=== PATIENT | male | born 1985 | race Caucasian/White ===

== ENCOUNTER 2018-04-21 11:59 | Inpatient (IN) | payer OTHER ==
[2018-04-21] MEDS ORDERED: hydrOXYzine PAMOATE 50 MG CAPSULE (FP) PO PRN (14:31)
[2018-04-21] MEDS ORDERED: MAG HYDROX/AL HYDROX/SIMETH 30 ML UNIT-DOSE CUP PO PRN (14:31)
[2018-04-21] MEDS ORDERED: MENTHOL/PHENOL 1 EACH UD MM PRN (14:31)
[2018-04-21] MEDS ORDERED: IBUPROFEN 400 MG TABLET (FP) PO PRN (14:31)
[2018-04-21] MEDS ORDERED: ACETAMINOPHEN 325 MG TABLET (FP) PO PRN (14:31)
[2018-04-21] MEDS ORDERED: guaiFENesin/D-METHORPHAN HB 10 ML UNIT-DOSE CUPS PO PRN (14:31)
[2018-04-21] MEDS ORDERED: MAGNESIUM HYDROX 2400MG/30ML ORAL SUSPENSION 30 ML CUP PO PRN (14:31)
[2018-04-21] MEDS ORDERED: P-EPHED 60MG/TRIPROLIDI 2.5MG TABLET PO PRN (14:31)
[2018-04-21] MEDS ORDERED: MAGNESIUM CITRATE 300 ML BOTTLE PO PRN (14:31)
[2018-04-21] MEDS ORDERED: LOPERAMIDE HCL 2 MG CAPSULE PO PRN (14:31)
--- NOTE | 2018-04-21 14:31 | HP ---
[facility]AN [facility]IN Rehab Assess/Revision - Admission History Admitted to Rehab from: [facility] Date of Admission to Rehab: 04/21/18 - Findings Detox History & Physical reviewed: Yes Concur with findings: Yes Comments/Additional Findings: for rehab as protocol Inpatient Rehab Admission - Initial Determination Are CD services needed?: Yes Free of communicable disease: Yes Not in need of hospitalization: Yes - Rehab Admission Criteria Previous failed treatment: Yes Poor recovery environment: Yes Comorbidities: Yes Lacks judgement: No Patient is meeting Inpatient Rehab admission criteria:: Yes
--- NOTE | 2018-04-21 17:14 | PN ---
[facility] Progress Note Note: Received a call from pharmacist regarding whether patient had been on Eliquis. Met with patient and patient denied ever being on Eliquis or any blood thinner. Patient denies history of blood clots, irregular heart beat, heart surgery or any history of clots in legs or lungs. Patient is alert and oriented. EKG on 08/24 shows no atrial fibrillation. Vital Signs Period Temp Pulse Resp BP Sys/Tobin Pulse Ox Last 24 Hr 97.5 F 68 19 113/74
[2018-04-21] MEDS: AMOX TR/POT CLAV 875MG/125MG TABLETS (FP) PO SCH (17:44)
[2018-04-21] MEDS: THIAMINE HCL 100 MG TABLET (FP) PO SCH (21:45)
[2018-04-21] MEDS ORDERED: MELATONIN 5 MG TABLETS PO PRN (22:00)
[2018-04-22] MEDS ORDERED: METHADONE HCL 10 MG TABLET ONE (04:17)
[2018-04-22] MEDS ORDERED: METHADONE HCL 40 MG DISPERSABLE TABLET ONE (04:17)
[2018-04-22] MEDS ORDERED: METHADONE HCL 10 MG TABLET PO SCH (06:00)
[2018-04-22] MEDS: METHADONE 80 MG, METHADONE 20 MG PO SCH (06:12)
[2018-04-22] MEDS: AMOX TR/POT CLAV 875MG/125MG TABLETS (FP) PO SCH ×2 (07:03→16:45)
[2018-04-22] MEDS: PRENATAL VITAMINS W/ FOLIC ACID TABLET (FP) PO SCH (09:49)
--- NOTE | 2018-04-22 14:57 | HP ---
Psychiatrist Admission - Data Date of interview: 04/22/18 Admission source: Transfer from [address] [place] [address] Identifying data: Readmission to [facility] for this 33 y/o male seeking rehabilitation treatment at [address] for opioid,cannabis (K2) ,cocaine and xanax dependence.Completed detox on [address] [place] [address].Patient is single without dependents,homeless,unemployed and supported on food stamps. Medical History: Hepatitis C and a history of appendectomy. Psychiatric History: History of past psychiatric hospitalizations at [facility].Diagnosed with MDD and Bipolar Disorder as per self- report.Discharged from [facility] six months ago.Patient declares that he has been lost to follow up for several months.Used to be prescribed seroquel and zoloft.Mr Ermias denies history of suicide attempts. Physical/Sexual Abuse/Trauma History: Patient denies. Additional Comment: Discussed in this examination.See details in this [facility] report : Smoking history: Current every day smoker. Have you smoked in the past 12 months: Yes. Aproximately how many cigarettes per day: 20. Cigars Per Day: 0. Hx Chewing Tobacco Use: No. Initiated information on smoking cessation : Yes. 'Breaking Loose' booklet given: 04/16/18. - Substance & Tx. History. Hx Alcohol Use: Yes. Hx Substance Use: Yes. Substance Use Type: Alcohol, Cocaine, Marijuana. Hx Substance Use Treatment: Yes ([facility]). - Substances Abused. Alprazolam (Xanax). Route: Oral. Frequency: Daily. Amount used: 6 /1MG. Age of first use: 11. Date of Last Use: 04/16/18. Cocaine. Route: Smoking. Frequency: Daily. Amount used: 10 BAGS. Age of first use: 12. Date of Last Use: 04/16/18. K2. Route: Smoking. Frequency: Daily. Amount used : 1 PACK. Age of first use: 32. Date of Last Use: 04/16/18. Urine Drug Screen Results: THC-Marijuana, TONIE-Cocaine, OPI-Opiates, BZO-Benzodiazepines, MTD-Methadone, TCA-Tricyclic Antidepress, OXY-Oxycodone.Noted. Vital Signs: Vital Signs - 24 hr 04/21/18 04/22/18 04/22/18 15:52 00:30 03:30 Temperature 97.5 F L Pulse Rate 68 Respiratory 19 18 18 Rate Blood Pressure 113/74 04/22/18 06:44 Temperature 97.5 F L Pulse Rate 91 H Respiratory 16 Rate Blood Pressure 119/69 Allergies/Adverse Reactions: Allergies Allergy/AdvReac Type Severity Reaction Status Date / Time haloperidol [From Haldol] Allergy Severe Verified 04/21/18 13:58 haloperidol lactate Allergy Severe Verified 04/21/18 13:58 [From Haldol] - Substance Abuse/Tx History Hx Alcohol Use: No Hx Substance Use: Yes Substance Use Type: Cocaine, Heroin, Marijuana, Opiates, Tranquilizers Hx Substance Use Treatment: Yes (on methadone maintenance-100 mg/day-at [facility] in [facility]) Mental Status Exam - Mental Status Exam Alert and Oriented to: Time, Place, Person Cognitive Function: Good Patient Appearance: Well Groomed Mood: Anxious, Hopeful Affect: Appropriate, Normal Range Patient Behavior: Appropriate, Cooperative Speech Pattern: Clear, Appropriate Voice Loudness: Normal Thought Process: Intact, Goal Oriented Thought Disorder: Not Present Hallucinations: Denies Suicidal Ideation: Denies Homicidal Ideation: Denies Insight/Judgement: Fair Sleep: Poorly, Difficulty falling asleep Appetite: Good Muscle strength/Tone: Normal Gait/Station: Normal Psychiatric Findings - Problem List ([place] 1, 2,3) (1) Alcohol dependence Current Visit: Yes Status: Acute (2) Opioid dependence on agonist therapy Current Visit: Yes Status: Acute (3) Sedative, hypnotic or anxiolytic dependence with withdrawal, uncomplicated Current Visit: Yes Status: Acute (4) Cocaine dependence Current Visit: Yes Status: Acute Comment: Crack (5) Cannabis dependence Current Visit: Yes Status: Acute (6) Nicotine dependence Current Visit: Yes Status: Acute Qualifiers: Nicotine product type: cigarettes Substance use status: in withdrawal Qualified Code(s): F17.213 - Nicotine dependence, cigarettes, with withdrawal (7) Drug-induced mood disorder Current Visit: Yes Status: Chronic (8) Bipolar disorder Current Visit: Yes Status: Chronic (9) Depressive disorder Current Visit: Yes Status: Suspected Comment: Self-report. (10) Insomnia Current Visit: Yes Status: Acute - Initial Treatment Plan Initial Treatment Plan: Psychoeducation.Sleep hygiene.Individual + group + supportive therapy sessions.Recreational therapy.Patient wishes to resume zoloft.Will re-start with 50 mg po daily.Insomnia is addressed with belsomra 5 mg po hs prn (patient declines seroquel due past side effects).Informed consent (verbal) given by the patient.Observation.
[2018-04-22] MEDS: THIAMINE HCL 100 MG TABLET (FP) PO SCH (21:05)
[2018-04-22] MEDS: SUVOREXANT 5 MG TABLET PO PRN (21:06)
[2018-04-23] MEDS ORDERED: METHADONE HCL 10 MG TABLET ONE (04:28)
[2018-04-23] MEDS ORDERED: METHADONE HCL 40 MG DISPERSABLE TABLET ONE (04:28)
[2018-04-23] MEDS: METHADONE 80 MG, METHADONE 20 MG PO SCH (06:06)
[2018-04-23] MEDS: AMOX TR/POT CLAV 875MG/125MG TABLETS (FP) PO SCH ×2 (07:05→17:35)
[2018-04-23] MEDS: PRENATAL VITAMINS W/ FOLIC ACID TABLET (FP) PO SCH (09:49)
[2018-04-23] MEDS: SERTRALINE HCL 50 MG TABLET (FP) PO SCH (09:49)
[2018-04-23] MEDS: THIAMINE HCL 100 MG TABLET (FP) PO SCH (21:10)
[2018-04-23] MEDS: SUVOREXANT 5 MG TABLET PO PRN (21:10)
[2018-04-24] MEDS ORDERED: METHADONE HCL 10 MG TABLET ONE (03:16)
[2018-04-24] MEDS ORDERED: METHADONE HCL 40 MG DISPERSABLE TABLET ONE (03:17)
[2018-04-24] MEDS: METHADONE 80 MG, METHADONE 20 MG PO SCH (06:38)
[2018-04-24] MEDS: SERTRALINE HCL 50 MG TABLET (FP) PO SCH (09:54)
[2018-04-24] MEDS: PRENATAL VITAMINS W/ FOLIC ACID TABLET (FP) PO SCH (09:54)
[2018-04-24] MEDS: SUVOREXANT 5 MG TABLET PO PRN (21:07)
[2018-04-24] MEDS: THIAMINE HCL 100 MG TABLET (FP) PO SCH (21:07)
[2018-04-25] MEDS ORDERED: METHADONE HCL 10 MG TABLET ONE (03:14)
[2018-04-25] MEDS ORDERED: METHADONE HCL 40 MG DISPERSABLE TABLET ONE (03:14)
[2018-04-25] MEDS: METHADONE 80 MG, METHADONE 20 MG PO SCH (06:17)
[2018-04-25] MEDS: PRENATAL VITAMINS W/ FOLIC ACID TABLET (FP) PO SCH (09:41)
[2018-04-25] MEDS: SERTRALINE HCL 50 MG TABLET (FP) PO SCH (09:41)
--- NOTE | 2018-04-25 10:10 | PN ---
[facility] Progress Note Note: Psychiatric nurse practitioner note: Belsomra 5mg renewed X7 days. Verbal consent given.
[2018-04-25] MEDS: THIAMINE HCL 100 MG TABLET (FP) PO SCH (21:07)
[2018-04-25] MEDS: SUVOREXANT 5 MG TABLET PO PRN (21:08)
[2018-04-26] MEDS ORDERED: METHADONE HCL 10 MG TABLET ONE (04:22)
[2018-04-26] MEDS ORDERED: METHADONE HCL 40 MG DISPERSABLE TABLET ONE (04:22)
[2018-04-26] MEDS: METHADONE 80 MG, METHADONE 20 MG PO SCH (06:23)
[2018-04-26] MEDS: PRENATAL VITAMINS W/ FOLIC ACID TABLET (FP) PO SCH (09:54)
[2018-04-26] MEDS: SERTRALINE HCL 50 MG TABLET (FP) PO SCH (09:54)
[2018-04-26] MEDS: THIAMINE HCL 100 MG TABLET (FP) PO SCH (21:01)
[2018-04-26] MEDS: SUVOREXANT 5 MG TABLET PO PRN (21:03)
[2018-04-27] MEDS ORDERED: METHADONE HCL 10 MG TABLET ONE (03:16)
[2018-04-27] MEDS ORDERED: METHADONE HCL 40 MG DISPERSABLE TABLET ONE (03:17)
[2018-04-27] MEDS: METHADONE 80 MG, METHADONE 20 MG PO SCH (06:14)
[2018-04-27] MEDS: PRENATAL VITAMINS W/ FOLIC ACID TABLET (FP) PO SCH (09:53)
[2018-04-27] MEDS: SERTRALINE HCL 50 MG TABLET (FP) PO SCH (09:53)
[2018-04-27] MEDS: THIAMINE HCL 100 MG TABLET (FP) PO SCH (21:05)
[2018-04-27] MEDS: SUVOREXANT 5 MG TABLET PO PRN (21:05)
[2018-04-28] MEDS ORDERED: METHADONE HCL 10 MG TABLET ONE (04:47)
[2018-04-28] MEDS ORDERED: METHADONE HCL 40 MG DISPERSABLE TABLET ONE (04:47)
[2018-04-28] MEDS: METHADONE 80 MG, METHADONE 20 MG PO SCH (06:19)
[2018-04-28] MEDS: SERTRALINE HCL 50 MG TABLET (FP) PO SCH (09:42)
[2018-04-28] MEDS: PRENATAL VITAMINS W/ FOLIC ACID TABLET (FP) PO SCH (09:42)
[2018-04-28] MEDS: THIAMINE HCL 100 MG TABLET (FP) PO SCH (21:01)
[2018-04-28] MEDS: SUVOREXANT 5 MG TABLET PO PRN (21:01)
[2018-04-29] MEDS ORDERED: METHADONE HCL 10 MG TABLET ONE (02:57)
[2018-04-29] MEDS ORDERED: METHADONE HCL 40 MG DISPERSABLE TABLET ONE (02:58)
[2018-04-29] MEDS: METHADONE 80 MG, METHADONE 20 MG PO SCH (06:34)
--- NOTE | 2018-04-29 08:46 | PN ---
[facility] Progress Note Note: Psychiatric nurse practitioner note: Belsomra 5mg renewed X7 days. Verbal consent given.
[2018-04-29] MEDS: PRENATAL VITAMINS W/ FOLIC ACID TABLET (FP) PO SCH (09:44)
[2018-04-29] MEDS: SERTRALINE HCL 50 MG TABLET (FP) PO SCH (09:44)
[2018-04-29] MEDS: THIAMINE HCL 100 MG TABLET (FP) PO SCH (21:05)
[2018-04-29] MEDS: SUVOREXANT 5 MG TABLET PO PRN (21:05)
[2018-04-30] MEDS ORDERED: METHADONE HCL 10 MG TABLET ONE (03:21)
[2018-04-30] MEDS ORDERED: METHADONE HCL 40 MG DISPERSABLE TABLET ONE (03:21)
[2018-04-30] MEDS: METHADONE 80 MG, METHADONE 20 MG PO SCH (06:47)
[2018-04-30] MEDS: PRENATAL VITAMINS W/ FOLIC ACID TABLET (FP) PO SCH (09:47)
[2018-04-30] MEDS: SERTRALINE HCL 50 MG TABLET (FP) PO SCH (09:47)
[2018-04-30] MEDS: SUVOREXANT 5 MG TABLET PO PRN (21:04)
[2018-04-30] MEDS: THIAMINE HCL 100 MG TABLET (FP) PO SCH (21:04)
[2018-05-01] MEDS ORDERED: METHADONE HCL 10 MG TABLET ONE (04:26)
[2018-05-01] MEDS ORDERED: METHADONE HCL 40 MG DISPERSABLE TABLET ONE (04:26)
[2018-05-01] MEDS: METHADONE 80 MG, METHADONE 20 MG PO SCH (06:42)
[2018-05-01] MEDS: SERTRALINE HCL 50 MG TABLET (FP) PO SCH (09:47)
[2018-05-01] MEDS: PRENATAL VITAMINS W/ FOLIC ACID TABLET (FP) PO SCH (09:47)
[2018-05-01] MEDS: THIAMINE HCL 100 MG TABLET (FP) PO SCH (21:03)
[2018-05-01] MEDS: SUVOREXANT 5 MG TABLET PO PRN (21:04)
[2018-05-02] MEDS ORDERED: METHADONE HCL 40 MG DISPERSABLE TABLET ONE (04:36)
[2018-05-02] MEDS ORDERED: METHADONE HCL 10 MG TABLET ONE (04:36)
[2018-05-02] MEDS: METHADONE 80 MG, METHADONE 20 MG PO SCH (06:01)
[2018-05-02] MEDS: PRENATAL VITAMINS W/ FOLIC ACID TABLET (FP) PO SCH (09:43)
[2018-05-02] MEDS: SERTRALINE HCL 50 MG TABLET (FP) PO SCH (09:44)
[2018-05-02] MEDS: THIAMINE HCL 100 MG TABLET (FP) PO SCH (21:11)
[2018-05-02] MEDS: SUVOREXANT 5 MG TABLET PO PRN (21:11)
[2018-05-03] MEDS ORDERED: METHADONE HCL 10 MG TABLET ONE (03:05)
[2018-05-03] MEDS ORDERED: METHADONE HCL 40 MG DISPERSABLE TABLET ONE (03:05)
[2018-05-03] MEDS: METHADONE 80 MG, METHADONE 20 MG PO SCH (06:20)
[2018-05-03] MEDS: SERTRALINE HCL 50 MG TABLET (FP) PO SCH (09:54)
[2018-05-03] MEDS: PRENATAL VITAMINS W/ FOLIC ACID TABLET (FP) PO SCH (09:54)
--- NOTE | 2018-05-03 15:58 | PN ---
S Progress Note Note: Psychiatry Attending's note : Called for medication renewal. Belsomra 5 mg po hs prn. Done.
[2018-05-03] MEDS: SUVOREXANT 5 MG TABLET PO PRN (21:07)
[2018-05-03] MEDS: THIAMINE HCL 100 MG TABLET (FP) PO SCH (21:08)
[2018-05-04] MEDS ORDERED: METHADONE HCL 40 MG DISPERSABLE TABLET ONE (03:18)
[2018-05-04] MEDS ORDERED: METHADONE HCL 10 MG TABLET ONE (03:18)
[2018-05-04] MEDS: METHADONE 80 MG, METHADONE 20 MG PO SCH (06:14)
[2018-05-04] MEDS: SERTRALINE HCL 50 MG TABLET (FP) PO SCH (09:51)
[2018-05-04] MEDS: PRENATAL VITAMINS W/ FOLIC ACID TABLET (FP) PO SCH (09:51)
[2018-05-04] MEDS: THIAMINE HCL 100 MG TABLET (FP) PO SCH (21:07)
[2018-05-04] MEDS: SUVOREXANT 5 MG TABLET PO PRN (21:07)
[2018-05-05] MEDS ORDERED: METHADONE HCL 10 MG TABLET ONE (05:49)
[2018-05-05] MEDS ORDERED: METHADONE HCL 40 MG DISPERSABLE TABLET ONE (05:50)
[2018-05-05] MEDS ORDERED: METHADONE 80 MG, METHADONE 20 MG PO SCH (06:00)
[2018-05-05 06:38] VITALS: BP 134/78; PULSE 58; TEMP 97.7
[2018-05-05] MEDS: PRENATAL VITAMINS W/ FOLIC ACID TABLET (FP) PO SCH (09:14)
[2018-05-05] MEDS: SERTRALINE HCL 50 MG TABLET (FP) PO SCH (09:14)
--- NOTE | 2018-05-05 09:23 | PN ---
Psychiatric Progress Note Vital Signs: Vital Signs Period Temp Pulse Resp BP Sys/Tobin Pulse Ox Last 24 Hr 97.7 F 58 18-18 134/78 Date of Session: 05/05/18 Chief Complaint:: Discharge Note HPI: Patient addressing alcohol, Cocaine, Sedative and cannabis dependence comorbid with Opioid Dependence on Agonist Therapy, Nicotine dependence, Bipolar Didsorder and Substance-Induced mood Disorder ROS: Hep C Current Medications: Active Medications Generic Name Dose Route Start Last Admin Trade Name Freq PRN Reason Stop Dose Admin Acetaminophen 650 mg 04/21/18 14:31 Tylenol - PO Q4H PRN FEVER Al Hydroxide/Mg Hydroxide 30 ml 04/21/18 14:31 Mylanta Oral Suspension - PO Q6H PRN DYSPEPSIA Eucalyptus/Menthol/Phenol/Sorbitol 1 each 04/21/18 14:31 Cepastat Lozenge - MM Q4H PRN SORE THROAT Guaifenesin 10 ml 04/21/18 14:31 Robitussin Dm - PO Q6H PRN COUGH Hydroxyzine Pamoate 50 mg 04/21/18 14:31 04/23/18 21:10 Vistaril - PO 50 mg Q4H PRN Administration AGITATION Ibuprofen 400 mg 04/21/18 14:31 04/30/18 18:53 Motrin - PO 400 mg Q6H PRN Administration Pain Level 4-6 Loperamide HCl 4 mg 04/21/18 14:31 Imodium - PO Q6H PRN DIARRHEA Magnesium Citrate 300 ml 04/21/18 14:31 Citroma - PO Q48H PRN CONSTIPATION Magnesium Hydroxide 30 ml 04/21/18 14:31 Milk Of Magnesia - PO DAILY PRN CONSTIPATION Methadone HCl 80 mg/ Methadone 100 mg 05/05/18 06:00 05/05/18 06:24 HCl 20 mg PO 05/12/18 05:59 100 mg DAILY@0600 BISI Administration Multivit/Folic Acid/Iron 1 tab 04/22/18 10:00 05/05/18 09:14 Vitamins (Sjr) - PO 1 tab DAILY BISI Administration Pseudoephedrine/Triprolidine 1 combo 04/21/18 14:31 Actifed - PO TID PRN NASAL CONGESTION Sertraline HCl 50 mg 04/23/18 10:00 05/05/18 09:14 Zoloft - PO 50 mg DAILY BISI Administration Suvorexant 5 mg 05/03/18 22:00 05/04/18 21:07 Belsomra PO 5 mg HS PRN Administration INSOMNIA Thiamine HCl 100 mg 04/21/18 22:00 05/04/18 21:07 Vitamin B1 - PO 100 mg HS BISI Administration Current Side Effect: No Lab tests ordered: Yes Lab tests reviewed: Yes Provider note:: Patient has completed this program today. He has met his treatment goals and will continue to address his issues in outpatient treatment at [facility]. 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 He responded well to Zoloft 50 mg po daily. scrit for that medication is electronically transmitted to [facility] at [address] [place] [address]. He is stable for discharge tioday Total face to face time:: 35 Mental Status Exam - Mental Status Exam Alert and Oriented to: Time, Place, Person Cognitive Function: Fair Patient Appearance: Well Groomed Mood: Hopeful, Euthymic Affect: Appropriate Patient Behavior: Cooperative Speech Pattern: Clear Voice Loudness: Normal Thought Process: Intact Thought Disorder: Not Present Hallucinations: Denies Suicidal Ideation: Denies Homicidal Ideation: Denies Insight/Judgement: Fair Sleep: Fair Appetite: Good Muscle strength/Tone: Normal Gait/Station: Normal Psychiatric Treatment Plan - Problem List (1) Alcohol dependence Current Visit: Yes (2) Cocaine dependence Current Visit: Yes Comment: Crack (3) Sedative, hypnotic or anxiolytic dependence with withdrawal, uncomplicated Current Visit: Yes (4) Cannabis dependence Current Visit: Yes (5) Opioid dependence on agonist therapy Current Visit: Yes (6) Nicotine dependence Current Visit: Yes Qualifiers: Nicotine product type: cigarettes Substance use status: in withdrawal Qualified Code(s): F17.213 - Nicotine dependence, cigarettes, with withdrawal (7) Bipolar disorder Current Visit: Yes (8) Drug-induced mood disorder Current Visit: Yes Initial treatment plan: Patient is discharged today and referred to [facility] for outpatient treatment
== END 2018-05-05 10:00 | disposition home or self-care (01) | DRG 772 ==
LOC: YASAS 11:59 → Y5N 12:00
PROVIDERS: ADMIT Psychiatry & Neurology Psychiatry; ATTEND Psychiatry & Neurology Psychiatry
PROC: HZ42ZZZ Group Counseling for Substance Abuse Treatment, Cognitive-Behavioral (ICD-10-PCS; principal; 2018-04-21)
DX: F10.20 Alcohol dependence, uncomplicated (principal); F13.20 Sedative, hypnotic or anxiolytic dependence, uncomplicated; F11.20 Opioid dependence, uncomplicated; F14.20 Cocaine dependence, uncomplicated; F12.20 Cannabis dependence, uncomplicated; F17.213 Nicotine dependence, cigarettes, with withdrawal; F31.9 Bipolar disorder, unspecified; F19.24 Other psychoactive substance dependence with psychoactive substance-induced mood disorder; G47.00 Insomnia, unspecified; Z59.0 Homelessness

== ENCOUNTER 2018-07-15 14:38 | Inpatient (IN) | payer OTHER ==
--- NOTE | 2018-07-15 19:09 | HP ---
CIWA Score - CIWA Score Nausea/Vomitin-Mild Nausea/No Vomiting Muscle Tremors: None Anxiety: 3 Agitation: 0-Normal Activity Paroxysmal Sweats: 2 Orientation: 0-Oriented Tacttile Disturbances: 0-None Auditory Disturbances: 0-None Visual Disturbances: 3-Moderate Sensitivity Headache: 0-None Present CIWA-Ar Total Score: 9 Admission ROS [facility] - HPI Allergies/Adverse Reactions: Allergies Allergy/AdvReac Type Severity Reaction Status Date / Time haloperidol [From Haldol] Allergy Severe Verified 07/15/18 19:28 haloperidol lactate Allergy Severe Verified 07/15/18 19:28 [From Haldol] History of Present Illness: pt here requesting detox from etoh use reports 1 pint vodka and 5 beers x 12 oz and 2 sticks of xanax daily x 3 months , denies seizures, + blackouts, denies falls while intoxicated . pt reports symptoms as above on CIWA score and dizziness w/ cessation of etoh use ; starts drinking early in the mornings , + tremors . on MMTP since 1 yr ago, currently reportedly 100 mg taken yesterday kaylie 0.000 utox : + daphnie, + fen, + mop, + oxy , + mtd tobacco : 10/10 ppd pmhx : denies pshx : denies psych : denies meds : denies Exam Limitations: No Limitations - Ebola screening Have you traveled outside of the country in the last 21 days: No Have you had contact with anyone from an Ebola affected area: No - Review of Systems Constitutional: See HPI, Chills, Night Sweats EENT: reports: Blurred Vision Respiratory: reports: No Symptoms reported Cardiac: reports: No Symptoms Reported GI: reports: Nausea : reports: No Symptoms Reported Musculoskeletal: reports: No Symptoms Reported Integumentary: reports: No Symptoms Reported Neuro: reports: No Symptoms reported Psychiatric: reports: No Sypmtoms Reported, Judgement Intact, Orientated x3 Patient History - Patient Medical History Hx Anemia: No Hx Asthma: No Hx Chronic Obstructive Pulmonary Disease (COPD): No Hx Cancer: No Hx Cardiac Disorders: No Hx Congestive Heart Failure: No Hx Hypertension: No Hx Hypercholesterolemia: No Hx Pacemaker: No HX Cerebrovascular Accident: No Hx Seizures: No Hx Dementia: No Hx Diabetes: No Hx Gastrointestinal Disorders: No Hx Liver Disease: No Hx Genitourinary Disorders: No Hx Sexually Transmitted Disorders: No Hx Renal Disease (ESRD): No Hx Thyroid Disease: No Hx Human Immunodeficiency Virus (HIV): No Hx Hepatitis C: Yes (2001- Not on meedication) Hx Depression: No Hx Suicide Attempt: No Hx Bipolar Disorder: No Hx Schizophrenia: No - Patient Surgical History Past Surgical History: No Hx Neurologic Surgery: No Hx Cataract Extraction: No Hx Cardiac Surgery: No Hx Lung Surgery: No Hx Breast Surgery: No Hx Breast Biopsy: No Hx Abdominal Surgery: No Hx Appendectomy: Yes (1995) Hx Cholecystectomy: No Hx Genitourinary Surgery: No Hx Section: No Hx Orthopedic Surgery: No Hx Hysterectomy: No Anesthesia Reaction: No - PPD History Date: 04/16/18 Results: 15 mm - Smoking Cessation Smoking history: Current every day smoker Have you smoked in the past 12 months: Yes Aproximately how many cigarettes per day: 20 Cigars Per Day: 0 Hx Chewing Tobacco Use: No Initiated information on smoking cessation: No - Substances Abused Alcohol Route: Oral Frequency: Daily Amount used: liquor- 1 pint, beer- 1 six pack Age of first use: 11 Date of Last Use: 07/15/18 Alprazolam (Xanax) Route: Oral Frequency: Daily Amount used: 2mg Age of first use: 11 Date of Last Use: 07/15/18 Family Disease History - Family Disease History Family Disease History: Diabetes: Grandparent, CA: Grandparent, Respiratory: Mother Admission Physical Exam [facility] - Physical General Appearance: Yes: Nourished, Disheveled, Mild Distress HEENTM: Yes: Within Normal Limits, EOMI, Hearing grossly Normal, Normal ENT Inspection, Normocephalic, Normal Voice, MARCOS, Pharynx Normal Respiratory: Yes: Within Normal Limits, Chest Non-Tender, Lungs Clear, Normal Breath Sounds, No Respiratory Distress, No Accessory Muscle Use Neck: Yes: Within Normal Limits, No masses,lesions,Nodules, Trachea in good position Breast: Yes: Within Normal Limits, Axillae without masses, Breasts Symetrical, No Discharge, No masses Cardiology: Yes: Within Normal Limits, Regular Rhythm, Regular Rate Abdominal: Yes: Within Normal Limits, Normal Bowel Sounds, Non Tender, Flat, Soft Genitourinary: Yes: Within Normal Limits Back: Yes: Within Normal Limits, Normal Inspection Musculoskeletal: Yes: Within Normal Limits, full range of Motion, Gait Steady, Pelvis Stable Extremities: Yes: Within Normal Limits, Normal Capillary Refill, Normal Inspection, Normal Range of Motion, Non-Tender Neurological: Yes: Within Normal Limits, Fully Oriented, Alert, Motor Strength 5 /5, Normal Mood/Affect, Normal Response Integumentary: Yes: Within Normal Limits, Normal Color, Dry, Warm - Diagnostic (1) Alcohol dependence with uncomplicated withdrawal Current Visit: No Status: Acute (2) Cocaine dependence Current Visit: No Status: Acute Comment: Crack (3) Opioid dependence on agonist therapy Current Visit: No Status: Acute (4) Sedative, hypnotic or anxiolytic dependence with withdrawal, uncomplicated Current Visit: No Status: Acute [facility] Breath Alcohol Content Breath Alcohol Content: 0
[2018-07-15] MEDS ORDERED: ACETAMINOPHEN 325 MG TABLET (FP) PO PRN (19:12)
[2018-07-15] MEDS ORDERED: MAGNESIUM CITRATE 300 ML BOTTLE PO PRN (19:12)
[2018-07-15] MEDS ORDERED: LOPERAMIDE HCL 2 MG CAPSULE PO PRN (19:12)
[2018-07-15] MEDS ORDERED: MAG HYDROX/AL HYDROX/SIMETH 30 ML UNIT-DOSE CUP PO PRN (19:12)
[2018-07-15] MEDS ORDERED: chlordiazePOXIDE HCL 25 MG CAPSULE PO PRN (19:12)
[2018-07-15] MEDS ORDERED: guaiFENesin/D-METHORPHAN HB 10 ML UNIT-DOSE CUPS PO PRN (19:12)
[2018-07-15] MEDS ORDERED: MENTHOL/PHENOL 1 EACH UD MM PRN (19:12)
[2018-07-15] MEDS ORDERED: MAGNESIUM HYDROX 2400MG/30ML ORAL SUSPENSION 30 ML CUP PO PRN (19:12)
[2018-07-15] MEDS ORDERED: IBUPROFEN 400 MG TABLET (FP) PO PRN (19:12)
[2018-07-15] MEDS ORDERED: P-EPHED 60MG/TRIPROLIDI 2.5MG TABLET PO PRN (19:12)
[2018-07-15 19:20] VITALS: BMI 21.5
[2018-07-15] MEDS: chlordiazePOXIDE HCL 25 MG CAPSULE PO SCH (22:59)
[2018-07-15] MEDS: THIAMINE HCL 100 MG TABLET (FP) PO SCH (22:59)
[2018-07-15] MEDS: MELATONIN 5 MG TABLETS PO PRN (22:59)
[2018-07-16] MEDS: chlordiazePOXIDE HCL 25 MG CAPSULE PO SCH ×4 (06:00→22:37)
--- NOTE | 2018-07-16 09:37 | PN ---
[facility] CIWA - CIWA Score Nausea/Vomitin-Mild Nausea/No Vomiting Muscle Tremors: 4-Moderate,w/Arms Extend Anxiety: 4-Mod. Anxious/Guarded Agitation: 4-Moderately Restless Paroxysmal Sweats: 2 Orientation: 0-Oriented Tacttile Disturbances: 1-Very Mild Itch/Numbness Auditory Disturbances: 1-Very Mild Visual Disturbances: 0-None Headache: 0-None Present CIWA-Ar Total Score: 17 [facility] Progress Note (SOAP) Subjective: 33 years old male admitted on 07/15/18 for alcohol withdrawal sx patient stated that he is in the methadon program x 1year, 100 mg daily, patient received 90 mg of methadone on 07/12/18 due to "missing a few days" of methadone patient has two bottles of 100 mg methadone to take home patient stated that he did not take the methadone from the bottles that last dose was 07/12/18 of 90 mg for the safety of the patient methadone 80 mg today and may possible increase gradually if patient's physical condition allow. sweat tremor restlessness irritable, body ache joints pain anxiety back pain running nose, diarrhea, nausea, chill hot and cold, yawning patient's clinical presentation indicated that the patient did not have methadone for "a couple of days" case discuss with the pharmacist that begin 80 mg and will build up to 100 mg Objective: 07/16/18 09:56 Vital Signs Temperature 97.2 F L 07/16/18 09:49 Pulse Rate 60 07/16/18 09:49 Respiratory Rate 18 07/16/18 09:49 Blood Pressure 107/76 07/16/18 09:49 O2 Sat by Pulse Oximetry (%) lab not available Assessment: withdrawal sx alcohol + opiate methadone maintenance will build up from 80 to 100 Plan: continue detox begin methadone 80 mg today
[2018-07-16] MEDS ORDERED: METHADONE HCL 40 MG DISPERSABLE TABLET PO ONE ×2 (09:55→10:00)
[2018-07-16] MEDS ORDERED: PRENATAL VITAMINS W/ FOLIC ACID TABLET (FP) PO SCH (10:00)
--- NOTE | 2018-07-16 14:50 | EKG ---
Test Reason : Blood Pressure : / mmHG Vent. Rate : 061 BPM Atrial Rate : 061 BPM P-R Int : 164 ms QRS Dur : 094 ms QT Int : 446 ms P-R-T Axes : 034 076 065 degrees QTc Int : 448 ms POOR DATA QUALITY, INTERPRETATION MAY BE ADVERSELY AFFECTED NORMAL SINUS RHYTHM NORMAL ECG WHEN COMPARED WITH ECG OF 16-APR-2018 23:11, NO SIGNIFICANT CHANGE WAS FOUND Confirmed by RASTA MOMIN, AUGUSTUS ([id number]) on 07/16/2018 2:49:53 PM Referred By: Confirmed By:AUGUSTUS MAGDALENO MD
--- NOTE | 2018-07-16 17:11 | CONSULT ---
[facility] Psychiatric Consult - Data Date of interview: 07/16/18 Admission source: [facility] Identifying data: Patient politely refused to complete psychiatric consultation with check writer. Patient stated, "it's ok i don't need to see you." Nursing staff informed.
[2018-07-16] MEDS: THIAMINE HCL 100 MG TABLET (FP) PO SCH (22:37)
[2018-07-16] MEDS: MELATONIN 5 MG TABLETS PO PRN (22:38)
[2018-07-17] MEDS ORDERED: METHADONE HCL 40 MG DISPERSABLE TABLET PO SCH (06:00)
[2018-07-17] MEDS ORDERED: METHADONE HCL 10 MG TABLET PO SCH (06:00)
[2018-07-17] MEDS: chlordiazePOXIDE HCL 25 MG CAPSULE PO SCH (06:10)
--- NOTE | 2018-07-17 10:06 | PN ---
S CIWA - CIWA Score Nausea/Vomitin-No Nausea/No Vomiting Muscle Tremors: 4-Moderate,w/Arms Extend Anxiety: 3 Agitation: 3 Paroxysmal Sweats: 1-Minimal Palms Moist Orientation: 0-Oriented Tacttile Disturbances: 1-Very Mild Itch/Numbness Auditory Disturbances: 0-None Visual Disturbances: 0-None Headache: 1-Very Mild CIWA-Ar Total Score: 13 [facility] Progress Note (SOAP) Subjective: diarrhea tremor sweat anxiety restlessness Objective: 07/17/18 10:05 Vital Signs Temperature 97 F L 07/17/18 07:36 Pulse Rate 52 L 07/17/18 07:36 Respiratory Rate 18 07/17/18 07:36 Blood Pressure 92/60 07/17/18 07:36 O2 Sat by Pulse Oximetry (%) lab value see 04/2018 Assessment: 07/17/18 10:24 withdrawal sx Plan: continue detox
[2018-07-17 10:46] VITALS: BP 101/60; PULSE 64; TEMP 98.1
--- NOTE | 2018-07-17 10:53 | DS ---
[facility] Detox Discharge Summary Admission Date: 07/15/18 Discharge Date: 07/17/18 - History Present History: Alcohol Dependence Additional Comments: 33 years old male admitted on 07/15/18 for alcohol withdrawal sx insists to leave the facility for "personal reason" alert oriented x 3 no acute distress wants to take care of personal issues in the community encourage attend community self help group patient agrees to return to methadone program for medical mental and addiction problems - Physical Exam Results Vital Signs: Vital Signs Temperature 98.1 F 07/17/18 10:44 Pulse Rate 64 07/17/18 10:44 Respiratory Rate 17 07/17/18 10:44 Blood Pressure 101/60 07/17/18 10:44 O2 Sat by Pulse Oximetry (%) Pertinent Admission Physical Exam Findings: alcohol withdrawal sx Vital Signs Temperature 98.1 F 07/17/18 10:44 Pulse Rate 64 07/17/18 10:44 Respiratory Rate 17 07/17/18 10:44 Blood Pressure 101/60 07/17/18 10:44 O2 Sat by Pulse Oximetry (%) - Treatment Hospital Course: Detox Protocol Followed, Responded well Patient has Accepted a Rehab Referral to: as per counselor arranged - Medication Discharge Medications: Ambulatory Orders Methadone [Dolophine -] 100 mg PO DAILY 04/20/18 Sertraline HCl [Zoloft -] 50 mg PO DAILY #30 tablet 05/05/18 - Diagnosis (1) Alcohol dependence with uncomplicated withdrawal Status: Acute (2) Nicotine dependence Status: Acute Qualifiers: Nicotine product type: cigarettes Substance use status: in withdrawal Qualified Code(s): F17.213 - Nicotine dependence, cigarettes, with withdrawal (3) Sedative, hypnotic or anxiolytic dependence with withdrawal, uncomplicated Status: Acute (4) Drug-induced mood disorder Status: Suspected (5) Hepatitis C Status: Resolved Qualifiers: Viral hepatitis chronicity: carrier Qualified Code(s): B18.2 - Chronic viral hepatitis C - AMA Did Patient Leave Against Medical Advice: Yes
[2018-07-17] MEDS ORDERED: chlordiazePOXIDE 5 MG CAPSULE PO SCH (23:00)
[2018-07-18] MEDS ORDERED: chlordiazePOXIDE HCL 10 MG CAPSULE PO SCH (23:00)
== END 2018-07-17 11:18 | disposition left against medical advice (07) | DRG 770 ==
LOC: YASAS 14:38 → Y6N 19:24
PROC: HZ2ZZZZ Detoxification Services for Substance Abuse Treatment (ICD-10-PCS; principal; 2018-07-15)
DX: F10.230 Alcohol dependence with withdrawal, uncomplicated (principal); F11.20 Opioid dependence, uncomplicated; F13.230 Sedative, hypnotic or anxiolytic dependence with withdrawal, uncomplicated; F17.213 Nicotine dependence, cigarettes, with withdrawal; F19.24 Other psychoactive substance dependence with psychoactive substance-induced mood disorder; B18.2 Chronic viral hepatitis C; Z88.8 Allergy status to other drugs, medicaments and biological substances; Z59.0 Homelessness
CPT/HCPCS: 73630-TC-RT-FY; 93005; 93010

== ENCOUNTER 2018-09-10 13:40 | Inpatient (IN) | payer OTHER ==
[2018-09-10 18:36] VITALS: BMI 28.7
--- NOTE | 2018-09-10 21:04 | HP ---
CIWA Score Nausea/Vomitin-Mild Nausea/No Vomiting Muscle Tremors: 4-Moderate,w/Arms Extend Anxiety: 3 Agitation: 4-Moderately Restless Paroxysmal Sweats: 4-Forehead w/Sweat Beads Orientation: 0-Oriented Tacttile Disturbances: 0-None Auditory Disturbances: 0-None Visual Disturbances: 0-None Headache: 0-None Present CIWA-Ar Total Score: 16 - Admission Criteria OAS Guidelines: Admission for Medically Managed Detox: Requires at least one of the followin. CIWA greater than 12 2. Seizures within the past 24 hours 3. Delirium tremens within the past 24 hours 4. Hallucinations within the past 24 hours 5. Acute intervention needed for co occurring medical disorder 6. Acute intervention needed for co occurring psychiatric disorder 7. Severe withdrawal that cannot be handled at a lower level of care (continued vomiting, continued diarrhea, abnormal vital signs) requiring intravenous medication and/or fluids 8. Patient presents the following: CIWA greater than 12 Admission Criteria Met: Admission criteria met Admission ROS [facility] - [facility] Chief Complaint: Detox for alcohol and Xanax. Having withdrawal symptoms. Allergies/Adverse Reactions: Allergies Allergy/AdvReac Type Severity Reaction Status Date / Time haloperidol [From Haldol] Allergy Severe Verified 09/10/18 19:24 haloperidol lactate Allergy Severe Verified 09/10/18 19:24 [From Haldol] History of Present Illness: Xanax use since age 9. Nicotine use since age 9. Alcohol use since age 11. Heroin use since age 9. Currently on [facility] MMTP- on 100 mg methadone daily. Last taken today. Staes on Methadone maintenance for 1.5 years. Continues to use Heroin while on methadone. IVDU - denies sharing needles/works. Needs dose verification. Denies seizures. Hx of alcoholic blackouts Hx: opiate overdose. (OD - 4 months ago) Longest sobriety 4 years attending groups. Hx: PPD (+) - CXR @ [facility] on 04/17/18 w/o evidence of pulmonary disease. Denies cough, SOB EKG @ [facility] on 04/16/18 - w/ Normal Sinus Rhythm; Denies CP/SOB Denies significant PMH/PSH. Patient Name: Narendra Monson Date: 1985 Address: [address] [place] [address] Sex: Male Rx Written Rx Dispensed Drug Quantity Days Supply Prescriber Name 06/16/2018 06/16/2018 chlordiazepoxide 25 mg capsule 8 2 Karthik Dee ( [place]) 03/18/2018 03/18/2018 chlordiazepoxide 25 mg capsule 8 2 Karthik Dee ( [place]) Patient Name: Narendra Monson Date: 1985 Address: [address] [place] [address] Sex: Male Rx Written Rx Dispensed Drug Quantity Days Supply Prescriber Name 11/23/2017 11/23/2017 methadone hcl 10 mg tablet 60 6 Rosa Elena Cantrell NP Patient Name: Narendra Monson Date: 1985 Address: [address] [place] [id number] Sex: Male Rx Written Rx Dispensed Drug Quantity Days Supply Prescriber Name 11/23/2017 11/23/2017 chlordiazepoxide 10 mg capsule 27 3 Rosa Elena Cantrell NP Exam Limitations: No Limitations - Ebola screening Have you traveled outside of the country in the last 21 days: No Have you had contact with anyone from an Ebola affected area: No Have you been sick,other than usual withdrawal symptoms: No Do you have a fever: No - Review of Systems Constitutional: Chills, Diaphoresis, Changes in sleep (Difficulty falling asleep.) EENT: reports: Nose Congestion Respiratory: reports: No Symptoms reported Cardiac: reports: No Symptoms Reported GI: reports: Nausea : reports: No Symptoms Reported Musculoskeletal: reports: Other (c/o generalized muscle and bone pain) Integumentary: reports: No Symptoms Reported Neuro: reports: Tremors Endocrine: reports: No Symptoms Reported Hematology: reports: No Symptoms Reported Psychiatric: reports: Judgement Intact, Orientated x3, Agitated, Anxious ( Denies thoughts of harming self or others.), Depressed (Denies thoughts of harming self or others) Patient History - Patient Medical History Hx Anemia: No Hx Asthma: No Hx Chronic Obstructive Pulmonary Disease (COPD): No Hx Cancer: No Hx Cardiac Disorders: No Hx Congestive Heart Failure: No Hx Hypertension: No Hx Hypercholesterolemia: No Hx Pacemaker: No HX Cerebrovascular Accident: No Hx Seizures: No Hx Dementia: No Hx Diabetes: No Hx Gastrointestinal Disorders: No Hx Liver Disease: No Hx Genitourinary Disorders: No Hx Sexually Transmitted Disorders: No Hx Renal Disease (ESRD): No Hx Thyroid Disease: No Hx Human Immunodeficiency Virus (HIV): No Hx Hepatitis C: Yes (2001- Not on medication) Hx Depression: Yes Hx Suicide Attempt: No Hx Bipolar Disorder: No Hx Schizophrenia: No - Patient Surgical History Past Surgical History: No Hx Neurologic Surgery: No Hx Cataract Extraction: No Hx Cardiac Surgery: No Hx Lung Surgery: No Hx Breast Surgery: No Hx Breast Biopsy: No Hx Abdominal Surgery: No Hx Appendectomy: Yes (1995) Hx Cholecystectomy: No Hx Genitourinary Surgery: No Hx Section: No Hx Orthopedic Surgery: No Hx Hysterectomy: No Anesthesia Reaction: No - PPD History Previous Implant?: Yes Documented Results: Negative w/proof Date: 04/16/18 Results: 15 mm PPD to be Administered?: No - Smoking Cessation Smoking history: Current every day smoker Have you smoked in the past 12 months: Yes Aproximately how many cigarettes per day: 20 Cigars Per Day: 0 Hx Chewing Tobacco Use: No Initiated information on smoking cessation: Yes 'Breaking Loose' booklet given: 09/10/18 - Substance & Tx. History Hx Alcohol Use: Yes Hx Substance Use: Yes Substance Use Type: Alcohol, Cocaine, Heroin, Marijuana Hx Substance Use Treatment: Yes (detox, rehabs, currently on MMTP) - Substances Abused Alcohol Route: Oral Frequency: Daily Amount used: LIQUOR- 2 PINTS Age of first use: 11 Date of Last Use: 09/10/18 Alprazolam (Xanax) Route: Oral Frequency: Daily Amount used: 4 mg Age of first use: 9 Date of Last Use: 09/10/18 Heroin Route: Injection Age of first use: 9 Family Disease History - Family Disease History Family Disease History: Diabetes: Grandparent, CA: Grandparent, Respiratory: Mother Admission Physical Exam S - Vital Signs Vital Signs: Vital Signs - 24 hr 09/10/18 18:35 Temperature 98.9 F Pulse Rate 80 Respiratory 18 Rate Blood Pressure 110/67 - Physical General Appearance: Yes: Appropriately Dressed, Mild Distress, Tremorous, Sweating (Beads of sweat), Anxious HEENTM: Yes: EOMI (Jerking movements of eyes on (L) and (R) lateral gaze), Normocephalic, Normal Voice, MARCOS (Pupils = 5 mm), Rhinorrhea Respiratory: Yes: Chest Non-Tender, Lungs Clear, Normal Breath Sounds, No Respiratory Distress Neck: Yes: No masses,lesions,Nodules, Supple Breast: Yes: Breast Exam Deferred Cardiology: Yes: Regular Rhythm, Regular Rate, S1, S2 Abdominal: Yes: Non Tender, Soft, Increased Bowel Sounds Genitourinary: Yes: Within Normal Limits Back: Yes: Normal Inspection Musculoskeletal: Yes: full range of Motion, Gait Steady Extremities: Yes: Normal Capillary Refill, Normal Range of Motion, Non-Tender, Tremors (of hands when arms extended) Neurological: Yes: retail delivery driver II-XII NML intact (Jerking movements of eyes on (L) and ( R) lateral gaze), Fully Oriented, Alert, Motor Strength 5/5, Normal Mood/Affect Integumentary: Yes: Normal Color, Dry, Warm, Diaphoresis (Sweaty beads) Lymphatic: Yes: Within Normal Limits - Diagnostic (1) Alcohol dependence with uncomplicated withdrawal Current Visit: Yes Status: Acute (2) Nicotine dependence Current Visit: Yes Status: Chronic Qualifiers: Nicotine product type: cigarettes Substance use status: in withdrawal Qualified Code(s): F17.213 - Nicotine dependence, cigarettes, with withdrawal (3) Opioid dependence on agonist therapy Current Visit: Yes Status: Chronic (4) Sedative, hypnotic or anxiolytic dependence with withdrawal, uncomplicated Current Visit: Yes Status: Acute (5) Cannabis dependence, uncomplicated Current Visit: Yes Status: Chronic (6) Cocaine dependence, uncomplicated Current Visit: Yes Status: Chronic (7) History of positive PPD, untreated Current Visit: Yes Status: Acute Comment: Last CXR 04/17/18 - No evidence of pulmoary disease Cleared for Admission [facility] - Detox or Rehab [facility] Level of Care: Medically Managed Detox Regimen/Protocol: Librium [facility] Breath Alcohol Content Breath Alcohol Content: 0 Urine Drug Screen - Results Drug Screen Negative: No Urine Drug Screen Results: THC-Marijuana, TONIE-Cocaine, OPI-Opiates, MTD- Methadone, FEN-Fentanyl
[2018-09-10] MEDS ORDERED: ACETAMINOPHEN 325 MG TABLET (FP) PO PRN (21:37)
[2018-09-10] MEDS ORDERED: chlordiazePOXIDE HCL 25 MG CAPSULE PO ONE (21:37)
[2018-09-10] MEDS ORDERED: MENTHOL/PHENOL 1 EACH UD MM PRN (21:37)
[2018-09-10] MEDS ORDERED: MAG HYDROX/AL HYDROX/SIMETH 30 ML UNIT-DOSE CUP PO PRN (21:37)
[2018-09-10] MEDS ORDERED: LOPERAMIDE HCL 2 MG CAPSULE PO PRN (21:37)
[2018-09-10] MEDS ORDERED: MAGNESIUM HYDROX 2400MG/30ML ORAL SUSPENSION 30 ML CUP PO PRN (21:37)
[2018-09-10] MEDS ORDERED: MAGNESIUM CITRATE 300 ML BOTTLE PO PRN (21:37)
[2018-09-10] MEDS ORDERED: chlordiazePOXIDE HCL 25 MG CAPSULE PO PRN (21:37)
[2018-09-10] MEDS ORDERED: NICOTINE POLACRILEX 2 MG GUM BUC PRN (21:37)
[2018-09-10] MEDS ORDERED: IBUPROFEN 400 MG TABLET (FP) PO PRN (21:37)
[2018-09-10] MEDS: chlordiazePOXIDE HCL 25 MG CAPSULE PO SCH (22:37)
[2018-09-10] MEDS: THIAMINE HCL 100 MG TABLET (FP) PO SCH (22:38)
[2018-09-11] LABS: URINE APPEARANCE CLEAR; URINE BILIRUBIN NEGATIVE (<2.0 mg/dL); URINE COLOR DKYELLOW; URINE GLUCOSE (UA) NEGATIVE (NEGATIVE); URINE KETONE NEGATIVE (NEGATIVE); URINE LEUK ESTERASE NEGATIVE (NEGATIVE); URINE NITRITE NEGATIVE (NEGATIVE); URINE PROTEIN NEGATIVE (NEGATIVE)
[2018-09-11] MEDS: chlordiazePOXIDE HCL 25 MG CAPSULE PO SCH ×4 (05:19→22:00)
[2018-09-11] MEDS ORDERED: METHADONE HCL 10 MG TABLET PO ONE (09:23)
[2018-09-11] MEDS ORDERED: METHADONE 80 MG, METHADONE 20 MG PO ONE (09:35)
[2018-09-11] MEDS ORDERED: METHADONE HCL 10 MG TABLET ONE (09:42)
[2018-09-11] MEDS ORDERED: METHADONE HCL 40 MG DISPERSABLE TABLET ONE (09:42)
[2018-09-11] MEDS: PRENATAL VITAMINS W/ FOLIC ACID TABLET (FP) PO SCH (10:05)
[2018-09-11] MEDS: NICOTINE 21 MG/24 HOURS TOPICAL PATCH TD SCH (10:25)
--- NOTE | 2018-09-11 12:28 | PN ---
[facility] CIWA - CIWA Score Nausea/Vomitin-Mild Nausea/No Vomiting Muscle Tremors: 3 Anxiety: 2 Agitation: 3 Paroxysmal Sweats: 1-Minimal Palms Moist Orientation: 1-Uncertain about Date Tacttile Disturbances: 0-None Auditory Disturbances: 0-None Visual Disturbances: 0-None Headache: 1-Very Mild CIWA-Ar Total Score: 12 [facility] Progress Note (SOAP) Subjective: anxiety restlessness hot and cold trouble sleep at night loose stool Objective: 09/11/18 12:29 Vital Signs Temperature 98.2 F 09/11/18 08:57 Pulse Rate 66 09/11/18 08:57 Respiratory Rate 18 09/11/18 08:57 Blood Pressure 107/62 09/11/18 08:57 O2 Sat by Pulse Oximetry (%) Laboratory Last Values Urine Color Dkyellow 09/10/18 23:10 Urine Appearance Clear 09/10/18 23:10 Urine pH 6.0 (5.0-8.0) 09/10/18 23:10 Ur Specific [place] 1.028 (1.010-1.035) 09/10/18 23:10 Urine Protein Negative (NEGATIVE) 09/10/18 23:10 Urine Glucose (UA) Negative (NEGATIVE) 09/10/18 23:10 Urine Ketones Negative (NEGATIVE) 09/10/18 23:10 Urine Blood Negative (NEGATIVE) 09/10/18 23:10 Urine Nitrite Negative (NEGATIVE) 09/10/18 23:10 Urine Bilirubin Negative (<2.0 mg/dL) 09/10/18 23:10 Urine Urobilinogen 2.0 mg/dL (0.2-1.0) 09/10/18 23:10 Ur Leukocyte Esterase Negative (NEGATIVE) 09/10/18 23:10 lab noted Assessment: 09/11/18 12:30 withdrawal sx Plan: continue detox
[2018-09-11] MEDS ORDERED: TRIMETHOBENZAMIDE HCL 300 MG CAPSULE PO PRN (12:49)
[2018-09-11] MEDS: THIAMINE HCL 100 MG TABLET (FP) PO SCH (21:59)
[2018-09-11] MEDS: MELATONIN 5 MG TABLETS PO PRN (22:00)
[2018-09-12] MEDS ORDERED: METHADONE HCL 10 MG TABLET ONE (05:22)
[2018-09-12] MEDS ORDERED: METHADONE HCL 40 MG DISPERSABLE TABLET ONE (05:22)
[2018-09-12] MEDS: chlordiazePOXIDE HCL 25 MG CAPSULE PO SCH ×3 (05:48→18:33)
[2018-09-12] MEDS: METHADONE 80 MG, METHADONE 20 MG PO SCH (05:48)
[2018-09-12] MEDS ORDERED: METHADONE HCL 40 MG DISPERSABLE TABLET PO SCH (06:00)
[2018-09-12] MEDS: NICOTINE 21 MG/24 HOURS TOPICAL PATCH TD SCH (10:43)
[2018-09-12] MEDS: PRENATAL VITAMINS W/ FOLIC ACID TABLET (FP) PO SCH (10:43)
--- NOTE | 2018-09-12 12:02 | PN ---
S CIWA - CIWA Score Nausea/Vomitin Muscle Tremors: 2 Anxiety: 3 Agitation: 2 Paroxysmal Sweats: 2 Orientation: 0-Oriented Tacttile Disturbances: 1-Very Mild Itch/Numbness Auditory Disturbances: 0-None Visual Disturbances: 0-None Headache: 0-None Present CIWA-Ar Total Score: 13 [facility] Progress Note (SOAP) Subjective: interrupted sleep, sweats, diarrhea, anxiety Objective: 09/12/18 12:04 Vital Signs Temperature 97.7 F 09/12/18 11:14 Pulse Rate 68 09/12/18 11:14 Respiratory Rate 18 09/12/18 11:14 Blood Pressure 117/66 09/12/18 11:14 O2 Sat by Pulse Oximetry (%) Laboratory Tests 09/10/18 23:10 Urine Color Dkyellow Urine Appearance Clear Urine pH 6.0 Ur Specific [place] 1.028 Urine Protein Negative Urine Glucose (UA) Negative Urine Ketones Negative Urine Blood Negative Urine Nitrite Negative Urine Bilirubin Negative Urine Urobilinogen 2.0 Ur Leukocyte Esterase Negative pt aox3 in nad ambulating Assessment: 09/12/18 12:05 withdrawal sx's Plan: cont. detox increase fluids imodium prn
[2018-09-12] MEDS: MELATONIN 5 MG TABLETS PO PRN (22:40)
[2018-09-12] MEDS: THIAMINE HCL 100 MG TABLET (FP) PO SCH (22:40)
[2018-09-12] MEDS: chlordiazePOXIDE 5 MG CAPSULE PO SCH (22:51)
[2018-09-13] MEDS ORDERED: METHADONE HCL 10 MG TABLET ONE (05:51)
[2018-09-13] MEDS ORDERED: METHADONE HCL 40 MG DISPERSABLE TABLET ONE (05:51)
[2018-09-13] MEDS: METHADONE 80 MG, METHADONE 20 MG PO SCH (06:07)
[2018-09-13] MEDS: chlordiazePOXIDE 5 MG CAPSULE PO SCH (06:07)
[2018-09-13 09:11] VITALS: BP 121/64; PULSE 68; TEMP 97.9
--- NOTE | 2018-09-13 10:53 | PN ---
[facility] Progress Note (SOAP) Subjective: Runny nose and cough x 2 weeks, anxiety and interrupted sleep Objective: 09/13/18 10:51 Vital Signs 09/13/18 09/13/18 09/13/18 03:30 06:36 09:10 Temperature 96.4 F L 97.9 F Pulse Rate 59 L 68 Respiratory 18 18 18 Rate Blood Pressure 115/68 121/64 Laboratory Last Values Urine Color Dkyellow 09/10/18 23:10 Urine Appearance Clear 09/10/18 23:10 Urine pH 6.0 (5.0-8.0) 09/10/18 23:10 Ur Specific [place] 1.028 (1.010-1.035) 09/10/18 23:10 Urine Protein Negative (NEGATIVE) 09/10/18 23:10 Urine Glucose (UA) Negative (NEGATIVE) 09/10/18 23:10 Urine Ketones Negative (NEGATIVE) 09/10/18 23:10 Urine Blood Negative (NEGATIVE) 09/10/18 23:10 Urine Nitrite Negative (NEGATIVE) 09/10/18 23:10 Urine Bilirubin Negative (<2.0 mg/dL) 09/10/18 23:10 Urine Urobilinogen 2.0 mg/dL (0.2-1.0) 09/10/18 23:10 Ur Leukocyte Esterase Negative (NEGATIVE) 09/10/18 23:10 UA noted Lungs CTA Assessment: 09/13/18 10:52 Withdrawal sx URI Plan: Continue detox Encouraged pt. to ask for cough medicine as ordered
--- NOTE | 2018-09-13 14:44 | DS ---
[facility] Detox Discharge Summary Admission Date: 09/10/18 Discharge Date: 09/13/18 - History Present History: Alcohol Dependence, Cannabis Dependence, Cocaine Dependence, Opioid Dependence Pertinent Past History: Depression, Hep C - Physical Exam Results Vital Signs: Vital Signs Temperature 97.9 F 09/13/18 09:10 Pulse Rate 68 09/13/18 09:10 Respiratory Rate 18 09/13/18 09:10 Blood Pressure 121/64 09/13/18 09:10 O2 Sat by Pulse Oximetry (%) Pertinent Admission Physical Exam Findings: Withdrawal sx Laboratory Last Values Urine Color Dkyellow 09/10/18 23:10 Urine Appearance Clear 09/10/18 23:10 Urine pH 6.0 (5.0-8.0) 09/10/18 23:10 Ur Specific [place] 1.028 (1.010-1.035) 09/10/18 23:10 Urine Protein Negative (NEGATIVE) 09/10/18 23:10 Urine Glucose (UA) Negative (NEGATIVE) 09/10/18 23:10 Urine Ketones Negative (NEGATIVE) 09/10/18 23:10 Urine Blood Negative (NEGATIVE) 09/10/18 23:10 Urine Nitrite Negative (NEGATIVE) 09/10/18 23:10 Urine Bilirubin Negative (<2.0 mg/dL) 09/10/18 23:10 Urine Urobilinogen 2.0 mg/dL (0.2-1.0) 09/10/18 23:10 Ur Leukocyte Esterase Negative (NEGATIVE) 09/10/18 23:10 - Medication Discharge Medications: Ambulatory Orders Methadone [Dolophine -] 100 mg PO DAILY 04/20/18 Sertraline HCl [Zoloft -] 50 mg PO DAILY #30 tablet 05/05/18 - Diagnosis (1) Alcohol dependence with uncomplicated withdrawal Status: Chronic (2) Cannabis dependence, uncomplicated Status: Chronic (3) Cocaine dependence, uncomplicated Status: Chronic (4) Nicotine dependence Status: Chronic Qualifiers: Nicotine product type: cigarettes Substance use status: in withdrawal Qualified Code(s): F17.213 - Nicotine dependence, cigarettes, with withdrawal (5) Opioid dependence on agonist therapy Status: Chronic (6) Sedative, hypnotic or anxiolytic dependence with withdrawal, uncomplicated Status: Chronic - AMA Did Patient Leave Against Medical Advice: Yes
[2018-09-13] MEDS ORDERED: chlordiazePOXIDE HCL 10 MG CAPSULE PO SCH (23:00)
== END 2018-09-13 10:22 | disposition left against medical advice (07) | DRG 770 ==
LOC: YASAS 13:40 → Y6N 20:33
PROC: HZ2ZZZZ Detoxification Services for Substance Abuse Treatment (ICD-10-PCS; principal; 2018-09-10)
DX: F10.230 Alcohol dependence with withdrawal, uncomplicated (principal); F13.230 Sedative, hypnotic or anxiolytic dependence with withdrawal, uncomplicated; F14.20 Cocaine dependence, uncomplicated; F12.20 Cannabis dependence, uncomplicated; F11.20 Opioid dependence, uncomplicated; F17.213 Nicotine dependence, cigarettes, with withdrawal; F32.9 Major depressive disorder, single episode, unspecified; B18.2 Chronic viral hepatitis C; J06.9 Acute upper respiratory infection, unspecified; R76.11 Nonspecific reaction to tuberculin skin test without active tuberculosis; Z88.8 Allergy status to other drugs, medicaments and biological substances; Z59.0 Homelessness
CPT/HCPCS: 81003